=== PATIENT | female | born 1985 | race Two or more races ===

== ENCOUNTER 2021-03-23 20:48 | Emergency (ER) | payer OTHER ==
[~2021-03-23] VITALS: Ht 162.6 cm; Wt 61.7 kg
[2021-03-23 20:49] VITALS: BP 132/76
--- NOTE | 2021-03-23 22:56 | REPVR ---
PROCEDURE INFORMATION: Exam: CT Head Without Contrast Exam date and time: 03/23/2021 10:24 PM Age: 35 years old Clinical indication: Weakness, facial; Additional info: Facial droop with change in vision TECHNIQUE: Imaging protocol: Computed tomography of the head without contrast. Axial and coronal reformatted images were created and reviewed. Radiation optimization: All CT scans at this facility use at least one of these dose optimization techniques: automated exposure control; mA and/or kV adjustment per patient size (includes targeted exams where dose is matched to clinical indication); or iterative reconstruction. COMPARISON: No relevant prior studies available. FINDINGS: Brain: No CT evidence of acute intracranial hemorrhage or acute territorial infarction. No significant mass effect or midline shift. Basal cisterns patent. Cerebral ventricles: Normal in size and configuration. Paranasal sinuses: Unremarkable. No fluid levels. Mastoid air cells: Grossly unremarkable. Bones/joints: No acute osseous abnormality. Soft tissues: Grossly unremarkable. IMPRESSION: No CT evidence of acute intracranial pathology. Electronically signed by: Nadir Sommer On 03/23/2021 22:56:08 PM
[2021-03-24] MEDS ORDERED: predniSONE 20 MG TAB PO ONE (03:00)
== END 2021-03-24 03:30 | disposition home or self-care (01) ==
LOC: M ED 20:48
DX: G51.0 Bell's palsy (principal)
CPT/HCPCS: 70450; 70544; 70551; 99282; J7512

== ENCOUNTER 2021-11-10 08:30 | Day surgery (SDC) | payer OTHER ==
[~2021-11-10] VITALS: Ht 162.6 cm; Wt 66.2 kg
[~2021-11-10 08:30] MED LIST: ACETAMINOPHEN 500 MG TAB PO ONE; AMIT-257 PO; CLAR10CA3 PO; D 101000 PO; FLON1SPR; LR 1,000 ML IV ONE; NEUR100C PO; NEUR300C PO; ZYRT10TA12 PO
[2021-11-10 09:19] LABS: HEMATOCRIT 39.2 % (36.0-47.0); HEMOGLOBIN 12.8 g/dl (12.0-15.5); MEAN CORPUSCULAR HEMOGLOBIN 27.5 pg (27.0-33.0); MEAN CORPUSCULAR HGB CONC 32.7 g/dl (32.0-36.5); MEAN CORPUSCULAR VOLUME 84.3 fl (80.0-96.0); PLATELET COUNT, AUTOMATED 294 10^3/uL (150-450); RED BLOOD COUNT 4.65 10^6/uL (4.00-5.40)
[2021-11-10] MEDS ORDERED: propofoL 200 MG/20 ML VIAL As Ordered ONE (09:22)
[2021-11-10] MEDS ORDERED: dexameTHASONE 4 MG/ML 1ML VIAL (J1100 PER 1MG) As Ordered ONE (09:22)
[2021-11-10] MEDS ORDERED: ONDANSETRON 4MG/2ML VIAL As Ordered ONE (09:22)
[2021-11-10] MEDS ORDERED: MIDAZOLAM INJ 2MG/2ML VIAL (J2250 PER 1MG) As Ordered ONE (09:22)
[2021-11-10] MEDS ORDERED: fentaNYL 100 MCG/2 ML INJECTION As Ordered ONE (09:22)
[2021-11-10] MEDS ORDERED: LIDOCAINE 2% 100MG/5ML SDV (FOR ANES.) As Ordered ONE (09:22)
[2021-11-10] MEDS ORDERED: LIDOCAINE W/EPINEPHRINE 1% 20ML VIAL As Ordered ONE (10:18)
[2021-11-10] MEDS ORDERED: IODINE STRONG SOLN 15 ML BTL As Ordered ONE (10:18)
[2021-11-10] MEDS ORDERED: KETOROLAC 60MG 2ML VIAL As Ordered ONE (10:44)
[2021-11-10] MEDS ORDERED: PHENYLephrine 500MCG 5ML (100MCG/ML) SYRINGE As Ordered ONE (10:57)
[2021-11-10] MEDS ORDERED: ONDANSETRON 4MG/2ML VIAL IV PRN (11:50)
[2021-11-10] MEDS ORDERED: fentaNYL 100 MCG/2 ML INJECTION IV PRN (11:50)
[2021-11-10] MEDS ORDERED: oxyCODONE 5MG TAB PO PRN (11:50)
[2021-11-10] MEDS ORDERED: HYDROMORPHONE HCL 0.5 MG/ 0.5 ML SYRINGE (J1170 PER 1) IV PRN (11:50)
[2021-11-10] MEDS ORDERED: LR 1,000 ML IV SCH ×2 (11:50)
[2021-11-10 11:56] VITALS: BP 116/71
== END 2021-11-10 13:38 | disposition home or self-care (01) ==
LOC: M SDC 08:30
PROVIDERS: ATTEND Obstetrics & Gynecology
DX: N87.1 Moderate cervical dysplasia (principal); G43.909 Migraine, unspecified, not intractable, without status migrainosus; F41.9 Anxiety disorder, unspecified; F32.9 Major depressive disorder, single episode, unspecified; Z79.899 Other long term (current) drug therapy
CPT/HCPCS: 36415; 57520; 81025; 85027; 88305; 88307; J1100; J1885; J2250; J2370; J2405; J3010

== ENCOUNTER → 2021-12-09 | Outpatient (REF) ==
[~2021-12-09] MED LIST changes: -ACETAMINOPHEN 500 MG TAB PO ONE; -LR 1,000 ML IV ONE
== END ==
LOC: M PLAIMG 10:32
PROVIDERS: ATTEND Internal Medicine
DX: M50.30 Other cervical disc degeneration, unspecified cervical region (principal)

== ENCOUNTER 2022-03-29 23:06 | Emergency (ER) | payer OTHER ==
[~2022-03-29] VITALS: Ht 162.6 cm; Wt 70.5 kg
[2022-03-29] MEDS ORDERED: TOPA50TA8 PO (23:22)
[2022-03-30] MEDS ORDERED: NS 1,000 ML IV ONE (02:20)
[2022-03-30] MEDS ORDERED: diphenhydrAMINE 50MG/ML VIAL (J1200) IV ONE ×2 (02:20→04:45)
[2022-03-30] MEDS ORDERED: METOCLOPRAMIDE INJ 10MG/2ML VIAL (J2765 PER 1) IV ONE ×2 (02:20→04:45)
[2022-03-30] MEDS ORDERED: KETOROLAC 30 MG/ML 1ML VIAL IV ONE ×2 (02:20→04:45)
[2022-03-30 06:15] VITALS: BP 97/61
== END 2022-03-30 07:15 | disposition home or self-care (01) ==
LOC: EDBD 23:06 → M ED 23:06
DX: G43.909 Migraine, unspecified, not intractable, without status migrainosus (principal); Z79.82 Long term (current) use of aspirin; Z79.83 Long term (current) use of bisphosphonates; Z79.899 Other long term (current) drug therapy
CPT/HCPCS: 96361; 96374; 96375; 99285; J1200; J1885; J2765